=== PATIENT | male | born 1995 | race African-American/Black ===

== ENCOUNTER 2020-08-07 00:29 | Emergency (ER) | payer MEDICAID ==
[~2020-08-07] VITALS: Ht 180.3 cm; Wt 78.0 kg
[~2020-08-07 00:29] MED LIST: AMOX-424 MT; ASPI-1153 PO; HYDR-4346 MT
[2020-08-07 00:51] VITALS: BP 128/90
[2020-08-07] MEDS ORDERED: KETOROLAC 60MG/2ML VIAL IM STA (00:59)
[2020-08-07] MEDS ORDERED: AMOX-424 PO (01:14)
[2020-08-07] MEDS ORDERED: IBUP-2030 PO (01:14)
[2020-08-07] MEDS ORDERED: TRAM50TA3 PO ×2 (01:14→01:18)
== END 2020-08-07 02:28 | disposition home or self-care (01) ==
LOC: ER 00:29
DX: K05.00 Acute gingivitis, plaque induced (principal); F12.10 Cannabis abuse, uncomplicated; Z79.899 Other long term (current) drug therapy
CPT/HCPCS: 96372; 99283; J1885; 96379